=== PATIENT | male | born 1955 | race Caucasian/White ===

== ENCOUNTER → 2024-11-27 | Outpatient (CLI) | payer MEDICARE ==
[2024-11-27 13:16] LABS: INR 0.9 (<1.2); Partial Thromboplastin Time 23.7 sec (22.0-30.0); Prothrombin Time 10.4 sec (10.0-12.5)
[2024-11-27 16:29] LABS: ALT 14 U/L (10-49); AST 25 U/L (14-35); Albumin 3.9 g/dL (3.8-4.9); Albumin/Globulin Ratio 1.39 Ratio (1.60-3.17); Alkaline Phosphatase 59 U/L (41-126); BUN/Creat Ratio 23.55 Ratio (12.00-20.00); Blood Urea Nitrogen 25.9 mg/dL (9.0-27.0); Calcium 8.7 mg/dL (8.7-10.3); Carbon Dioxide 19.7 mmol/L (21.6-31.8); Chloride 106 mmol/L (96-109); Globulin 2.8 g/dL (1.6-3.3); Glucose 119 mg/dL (70-110); Potassium 4.7 mmol/L (3.5-5.5); Sodium 135 mmol/L (135-145); Total Bilirubin 0.3 mg/dL (0.3-1.2); Total Protein 6.7 g/dL (6.2-8.2)
[2024-11-27 16:31] LABS: HCT 47.5 % (39.6-50.0); HGB 16.3 g/dL (13.0-17.0); MCH 30.9 pg (27.0-32.0); MCHC 34.3 g/dL (32.0-37.0); MCV 90.1 FL (80.0-97.0); Mean Platelet Volume 11.1 FL (9.5-12.2); NRBC Per 100 WBC 0 X 10*3/uL (0.00-0.01); Platelet Count 209 X 10*3/uL (140-440); RBC 5.27 X 10*6/uL (4.40-5.60); RDW 11.8 % (11.5-14.5)
== END | disposition home or self-care (01) ==
LOC: LABPAT 11:49
PROVIDERS: ATTEND Orthopaedic Surgery
DX: Z01.818 Encounter for other preprocedural examination (principal); M16.11 Unilateral primary osteoarthritis, right hip; Z22.322 Carrier or suspected carrier of Methicillin resistant Staphylococcus aureus
CPT/HCPCS: 80053; 85027; 85610; 85730; 86850; 86900; 86901; 87070; 93005

== ENCOUNTER 2024-12-04 05:41 | Day surgery (SDC) | payer MEDICARE ==
[2024-11-29 10:56] VITALS: BMI 32.8
[~2024-12-04 05:41] MED LIST: TRANEXAMIC 1,000 MG/100ML-NACL 1,000 MG in SALINE 1 100ML.BAG IVPB PRN
[2024-12-04] MEDS ORDERED: HYDROmorphone 0.5 MG/0.5 ML SYRINGE IVP PRN ×3 (05:52→08:46)
[2024-12-04] MEDS: IV FLUID CONTINUATION 1,000 ML IV ONE (06:30)
[2024-12-04] MEDS: LIDOCAINE 1% (10MG/ML) FOR IV START INTRADERMA STA (06:30)
[2024-12-04] MEDS: LACTATED RINGERS 1,000 ML IV SCH (06:30)
[2024-12-04] MEDS: ACETAMINOPHEN TAB 500 MG TAB PO PRN (06:37)
[2024-12-04] MEDS: GABAPENTIN 300 MG CAP PO PRN (06:37)
[2024-12-04] MEDS: MELOXICAM 7.5 MG TAB PO PRN (06:37)
[2024-12-04] MEDS: DEXAMETHASONE SOD PHOSPHATE 4 MG/ML 1 ML VIAL IVP STA (06:38)
[2024-12-04] MEDS: ONDANSETRON 4 MG/2 ML VIAL IVP STA (06:38)
[2024-12-04] MEDS: MIDAZOLAM 2 MG/2 ML VIAL IV ONE (06:51)
[2024-12-04] MEDS: fentaNYL (PF) 50 MCG/ML 2 ML AMP IVP PRN (06:51)
[2024-12-04] MEDS ORDERED: TRANEXAMIC 1,000 MG/100ML-NACL PREMIX BAG ONE (06:58)
[2024-12-04] MEDS ORDERED: PROPOFOL 10 MG/ML 20 ML VIAL IV ONE (06:58)
[2024-12-04] MEDS ORDERED: ePHEDrine 50 MG/ML 1 ML VIAL ONE (06:58)
[2024-12-04] MEDS ORDERED: ROPIVACAINE 5 MG/ML 30 ML VIAL ONE (06:58)
[2024-12-04] MEDS ORDERED: DEXAMETHASONE SOD PHOSPHATE 4 MG/ML 1 ML VIAL ONE (06:58)
[2024-12-04] MEDS: ceFAZolin 2 GM in DEXTROSE 5% IN WATER 50 ML IVPB PRN (07:00)
[2024-12-04] MEDS: ceFAZolin 1,000 MG in SODIUM CHLORIDE 0.9% 1,000 ML IRRIGATION ONE (07:00)
[2024-12-04] MEDS: ROPIVACAINE 5 MG/ML 30 ML VIAL MISCELLANE ONE ×2 (07:36→08:12)
[2024-12-04] MEDS: LACTATED RINGERS 1,000 ML IV ONE (08:19)
--- NOTE | 2024-12-04 08:20 | P.OP ---
Date of Procedure: 12/04/24 Preoperative Diagnosis: Severe osteoarthritis right hip Postoperative Diagnosis: Severe osteoarthritis right hip Procedure(s) Performed: Right total hip arthroplasty with a direct anterior approach Implants: [employer]ee [employer] Nephew Polarstem standard size 3 with a collar [employer]ee [employer]hew R3, 3 hole hemispherical acetabular shell, 52 mm [employer]ee [employer]hew Reflection 6.5 mm cancellus screw, 20 mm 2 [employer]ee [employer]hew OR30, 40 mm ID, 52 mm OD, Oxinium dual mobility liner [employer]ee [employer] Nephew OR30, 22 mm ID, 40 mm OD, XLPE Dual mobility insert [employer]hew Oxinium femoral head 28 m, +0 All components were press-fit. The articulation is Oxinium on polyethylene. Anesthesia: spinal Surgeon: Kervin Callejas Champagne Maker #1: Brigitte Ro Estimated Blood Loss (ml): 500 Pathology: none sent Condition: stable Disposition: PACU Indications for Procedure: After failure of conservative treatment we discussed the surgical and nonsurgical treatment options at length. Patient wishes to proceed with a total hip arthroplasty with a direct anterior approach. Complications specific to this procedure were discussed at length, including but not limited to infection, leg length discrepancy, dislocation, nerve injury, and fracture. Covid-19 was also discussed at length with the patient, and they are aware of the current policies and procedures. The patient was given the option of delaying surgery, but they elect to proceed knowing these risks. Patient is aware of all these complications and informed consent was obtained Operative Findings: The operative findings are consistent with severe osteoarthritis of the right hip. Secondary to the patient's Parkinson's disease, a dual mobility hip insert was utilized to decrease the risk of a dislocation. Description of Procedure: The patient was seen and evaluated in the preoperative area and the consent was reviewed. The operative site was marked with a skin marker. The patient verified the procedure and operative site. A EMMIE block was placed by anesthesia in the preoperative area. The patient was then brought to the operating room and given preoperative antibiotics intravenously. 1 g of Tranexamic acid was also given intravenously. A spinal anesthetic was administered by the anesthesia department. The patient was then placed on the [place] table with the bony prominences well-padded. The hip area was then prepped with a ChloraPrep solution and draped in the usual sterile fashion. A universal timeout was then performed, which confirmed the patient's name, surgical site, ALLERGIES, and procedure being performed on the consent. Next the incision site was located at 1 cm distal and 4 cm lateral to the anterior superior iliac spine. The skin and subcutaneous tissues were sharply incised. Incision was carefully dissected down to the fascia overlying the tensor fascia leanne muscle. This fascia was then incised in line with the muscle fibers. Care was taken to stay laterally in order to avoid injuring the lateral femoral cutaneous nerve. Next, using blunt finger dissection, the tensor fascia leanne muscle was dissected off its investing fascia. The muscle was then carefully retracted laterally with a cobra retractor over the lateral neck of the femur. Next, the circumflex vessels were identified and cauterized using the Aquamantis device. The anterior hip capsule was then exposed. The capsule was then opened and an inverted T fashion. The retractors were then placed intracapsularly. The retractors were maintained intracapsular throughout the procedure. The proximal femur was then visualized. Fluoroscopic x-rays were then taken in order to evaluate the preoperative leg lengths. A small amount of traction was placed on the leg. The femoral neck was then osteotomized at the appropriate level above the lesser trochanter. A small wedge of bone was then removed from the remaining femoral head. Next, using a corkscrew the femoral head was removed from the acetabulum. On gross visual inspection, the femoral head had complete loss of articular cartilage and multiple periarticular osteophytes. The femoral head was then measured. Attention was then turned to the acetabulum. The acetabulum was exposed and any remaining labrum was excised. Sequential reaming of the acetabulum was performed using fluoroscopic guidance until there was a good bed of bleeding cancellus bone. When the appropriate size was reached, a trial was then placed. The position and fit of the trial was checked with fluoroscopy. The trial was then removed. Then, using fluoroscopic guidance, the final implant was impacted at 20 of anteversion and 40 of abduction, and fully seated in the acetabulum. 2 screws were then placed in the acetabulum. Again fluoroscopy was used to check position of the screws. Next, the liner was then impacted, with a 20 elevated liner located in the anterior superior quadrant. Component locking was confirmed. Attention was then directed to the femur. With the aid of the [place] table, the femur was externally rotated to approximately 130, extended, and adducted under the opposite leg. A side hook was then placed under the proximal femur, and the side hook elevator was used to elevate the proximal femur while releasing the capsule. Retractors were then placed. A capsular release was performed, as well as a release of the conjoined tendon, which afforded excellent v isualization of the proximal femur. Next, a box osteotome was used to lateralize the proximal femur. A dipper clock and watch hands was then used to locate the femoral canal. Sequential broaching was then performed with appropriate size which afforded excellent fixation in the proximal femur. A trial was then placed with appropriate head and neck, and the hip was gently reduced with the aid of the [place] table. Fluoroscopy was then used to check position of the components, as well as to evaluate the leg lengths and offset. The leg lengths and offset were measured as closely as possible to ensure stability of the hip. The hip was then gently dislocated and the trials were then removed. Final implants were then impacted and the hip was again reduced. Final fluoroscopic x-rays confirmed that the components were in anatomic position. The leg lengths and offset were measured and were found to coincide with the trial measurements. The hip was also taken through range of motion, and found to be stable. The hip was then copiously irrigated with antibiotic solution with pulsatile lavage. The hip was then irrigated with Irrisept solution. The soft tissues were then injected with a ropivacaine solution. A second dose of 1 g of Tranexamic acid was also given intravenously. The fascia was then closed with 2-0 strata fix suture. The subcutaneous tissue was closed with 3-0 Vicryl. The subcuticular tissue was closed with 3-0 strata fix suture. The skin was then closed with Exofin skin glue. After the glue and dried, and Optifoam silver impregnated dressing was applied. The patient was t hen transferred to the recovery room in stable condition. The circulation assistant ALONZO Rousseau was required due to the complexity of surgery, and the need for skilled sales assistant entertainment and media for positioning, draping, exposure, retraction, and closure of the wound.
--- NOTE | 2024-12-04 08:31 | FL ---
EXAMINATION TYPE: FL guidance operating room, XR Hip Limited RT DATE OF EXAM: 12/04/2024 FLUOROSCOPY rt. Anterior hip replacement fl time: 43 sec DAP: 2.5833 [place] 3 images are submitted and show gross anatomic alignment without evidence complication on these intra operative views. [facility], , 12/04/2024 8:29 AM
[2024-12-04] MEDS ORDERED: MAGNESIUM HYDROXIDE 2,400 MG/30 ML CUP PO PRN (08:46)
[2024-12-04] MEDS ORDERED: NALOXONE 0.4 MG/ML 1 ML VIAL IV PRN (08:46)
[2024-12-04] MEDS ORDERED: ONDANSETRON 4 MG/2 ML VIAL IVP PRN (08:46)
[2024-12-04] MEDS ORDERED: HYDROcodone/APAP 7.5-325MG 1 EACH TAB PO PRN (08:48)
--- NOTE | 2024-12-04 09:14 | XR ---
EXAMINATION TYPE: XR Hip Limited RT DATE OF EXAM: 12/04/2024 9:04 AM COMPARISON: None CLINICAL INDICATION: Male, 69 years old with history of Status post hip surgery, assess surgical gemini almeida; PHH, pain FINDINGS: Image shows placement of right total hip arthroplasty. Both acetabular cup and femoral stem component s of the prosthesis are well seated without periprosthetic fracture. Alignment grossly anatomic. Soft tissue air related to recent operation. IMPRESSION: Uncomplicated postoperative appearance right total hip arthroplasty. [facility], Workstation: [facility], 12/04/2024 9:12 AM
[2024-12-04] MEDS: CARBIDOPA-LEVODOPA 25-100 MG 1 EACH TAB PO SCH (13:09)
--- NOTE | 2024-12-04 13:22 | P.ANPRN ---
Procedure Note - Anesthesia - Nerve Block Performed Right Ian Single Time Out Performed: Yes ([id number]) Date of Procedure: 12/04/24 Procedure Start Time: 06:52 Procedure Stop Time: 06:57 Location of Patient: PreOp Indication: Acute Post-Operative Pain, Requested by Surgeon Specifically requested for management of pain by DrAislinn: Kervin Callejas Sedation Type: Sedate with meaningful contact maintained Preparation: Sterile Prep Position: Supine Catheter: None Needle Types: Pajunk Needle Gauge: 21 Ultrasound used to visualize needle placement: Yes Ultrasound used to observe medication spread: Yes Injectate: 0.5% Ropivacaine (see comment for volume) (30CC+DECADRON 4MG) Blood Aspirated: No Pain Paresthesia on Injection Noted: No Resistance on Injection: Normal Image Stored and Saved: Yes Events: Uneventful and Well Tolerated
[2024-12-04] MEDS: SODIUM CHLORIDE 0.9% 1,000 ML IV SCH (14:26)
[2024-12-04] MEDS: ENTACAPONE 200 MG TAB PO SCH (19:53)
[2024-12-04] MEDS: ASPIRIN 325 MG TAB PO SCH (20:33)
[2024-12-04] MEDS: SENNOSIDES-DOCUSATE SODIUM 1 EACH TAB PO SCH (20:33)
[2024-12-04] MEDS: PRAMIPEXOLE 1 MG TAB PO SCH (22:15)
[2024-12-04] MEDS: HYDROcodone/APAP 7.5-325MG 1 EACH TAB PO PRN (22:21)
[2024-12-05 07:53] VITALS: BP 160/96; PULSE 74; RESP 18; TEMP 97.6
[2024-12-05 08:11] LABS: HCT 39.9 % (39.6-50.0); HGB 13.5 g/dL (13.0-17.0); MCH 30.4 pg (27.0-32.0); MCHC 33.8 g/dL (32.0-37.0); MCV 89.9 FL (80.0-97.0); Mean Platelet Volume 10.8 FL (9.5-12.2); NRBC Per 100 WBC 0 X 10*3/uL (0.00-0.01); Platelet Count 195 X 10*3/uL (140-440); RBC 4.44 X 10*6/uL (4.40-5.60); WBC 12.78 X 10*3/uL (4.50-10.00)
[2024-12-05] MEDS: LORATADINE 10 MG TAB PO SCH (08:13)
[2024-12-05] MEDS: ASCORBIC ACID 500 MG TAB PO SCH (08:13)
[2024-12-05] MEDS: RASAGILINE MESYLATE 0.5 MG PO SCH (08:16)
[2024-12-05] MEDS: HYDROmorphone 0.5 MG/0.5 ML SYRINGE IVP PRN (08:24)
[2024-12-05 08:46] LABS: Basophils # (A) 0.03 X 10*3/uL (0.00-0.10); Basophils % (A) 0.2 %; Eosinophils # (A) 0.02 X 10*3/uL (0.04-0.35); Eosinophils % (A) 0.2 %; Lymphocytes # (A) 1.96 X 10*3/uL (0.90-5.00); Lymphocytes % (A) 15.3 %; Monocytes # (A) 1.53 X 10*3/uL (0.20-1.00); Neutrophils # (A) 9.18 X 10*3/uL (1.80-7.70); Neutrophils % (A) 71.8 %
[2024-12-05] MEDS ORDERED: NON FORMULARY DRUG (Cetirizine Hcl [Zyrtec] 10 MG Tablet) PO SCH (09:00)
--- NOTE | 2024-12-05 09:18 | P.DS ---
Providers Expected date of discharge: 12/05/24 Attending physician: Kervin Callejas Consults: 12/04/24 08:46 Consult Physician Routine Consulting Provider: Sotero Ludwig Consult Reason/Comments: medical management Do you want consulting provider notified?: Yes Primary care physician: Eliezer Salazar - Discharge Diagnosis(es) (1) Osteoarthritis of right hip Current Visit: Yes Status: Acute (2) S/P total hip arthroplasty Current Visit: Yes Status: Acute Hospital Course: This is a 69-year-old male with known history of degenerative arthritis of the right hip. The patient presented for evaluation as an outpatient. After discussion and consideration patient elects to proceed with total hip arthroplasty. The patient is seen preoperatively by Dr. Callejas and medically cleared for surgery by their primary care physician. Patient is admitted to [facility] on 12/04/2024 for total hip arthroplasty. The procedure is performed without complication or sequelae. The patient is doing well postoperatively. Labs and vital signs are stable on day of discharge. On day of discharge patient's hip incision is healing well. There is minimal erythema. There is no drainage noted at this time. There is minimal soft tissue swelling to the hip and thigh. Patient has full foot and ankle motion without difficulty or pain. Calf is soft and nontender to palpation. Neurovascular status to the right lower extremity is intact. Patient is discharged home in good condition. Please see med rec for accurate list of home medications. Plan - Discharge Summary Discharge Rx Participant: No New Discharge Prescriptions: New Aspirin 325 mg PO BID #60 tab HYDROcodone/APAP 7.5-325MG [Premium 7.5-325] 1 - 2 tab PO Q6H PRN #32 tab PRN Reason: Pain Sennosides [Senokot] 2 tab PO DAILY PRN #60 tablet PRN Reason: Constipation No Action Rasagiline Mesylate 1.5 mg PO Q2D Rasagiline Mesylate 0.5 mg PO DAILY Pramipexole [Mirapex] 1 mg PO QID Loratadine 10 mg PO DAILY Betamethasone Dipropionate [Betamethasone Dipropionate 0.05% Cream] 1 applic TOPICAL BID PRN PRN Reason: Skin Irritation [place]-3/Dha/Epa/Fish Oil [[place]-3 Fish Oil 1,000 mg Sfgl] 1 each PO DAILY Cholecalciferol (Vitamin D3) [Vitamin D3 (50 Mcg = 2000 Iu)] 100 mcg PO DAILY polyethylene glycoL 3350 [Miralax] 1 dose PO DAILY Colostrum, Bovine [Colostrum Prime Life] 4 tablet PO DAILY Aspirin [Adult Low Dose Aspirin EC] 81 mg PO DAILY Vibegron [Gemtesa] 75 mg PO HS Rasagiline Mesylate 1 mg PO Q2D Entacapone [Comtan] 200 mg PO QID Cetirizine HCl [Zyrtec] 10 mg PO DAILY Carbidopa-Levodopa 25-100 mg [Sinemet 25-100] 2 tablet PO QID Ascorbic Acid [Vitamin C] 500 mg PO DAILY Magnesium 800 mg PO DAILY Psyllium Husk [Metamucil] 1 dose PO DAILY Green Tea Colburn Extract [Green Tea Extract] 200 mg PO DAILY Acetaminophen Tab [Tylenol Tab] 500 mg PO Q6H Ibuprofen 600 mg PO TID Discharge Medication List Acetaminophen Tab [Tylenol Tab] 500 mg PO Q6H 11/29/24 [History] Ascorbic Acid [Vitamin C] 500 mg PO DAILY 11/29/24 [History] Aspirin [Adult Low Dose Aspirin EC] 81 mg PO DAILY 11/29/24 [History] Betamethasone Dipropionate [Betamethasone Dipropionate 0.05% Cream] 1 applic TOPICAL BID PRN 11/29/24 [History] Carbidopa-Levodopa 25-100 mg [Sinemet 25-100] 2 tablet PO QID 11/29/24 [History] Cetirizine HCl [Zyrtec] 10 mg PO DAILY 11/29/24 [History] Cholecalciferol (Vitamin D3) [Vitamin D3 (50 Mcg = 2000 Iu)] 100 mcg PO DAILY 11/29/24 [History] Colostrum, Bovine [Colostrum Prime Life] 4 tablet PO DAILY 11/29/24 [History] Entacapone [Comtan] 200 mg PO QID 11/29/24 [History] Green Tea Colburn Extract [Green Tea Extract] 200 mg PO DAILY 11/29/24 [History] Ibuprofen 600 mg PO TID 11/29/24 [History] Loratadine 10 mg PO DAILY 11/29/24 [History] Magnesium 800 mg PO DAILY 11/29/24 [History] [place]-3/Dha/Epa/Fish Oil [[place]-3 Fish Oil 1,000 mg Sfgl] 1 each PO DAILY 0 6/18/25 [History] Pramipexole [Mirapex] 1 mg PO QID 11/29/24 [History] Psyllium Husk [Metamucil] 1 dose PO DAILY 11/29/24 [History] Rasagiline Mesylate 0.5 mg PO DAILY 11/29/24 [History] Rasagiline Mesylate 1 mg PO Q2D 11/29/24 [History] Rasagiline Mesylate 1.5 mg PO Q2D 11/29/24 [History] Vibegron [Gemtesa] 75 mg PO HS 11/29/24 [History] polyethylene glycoL 3350 [Miralax] 1 dose PO DAILY 11/29/24 [History] Aspirin 325 mg PO BID #60 tab 12/04/24 [Rx] HYDROcodone/APAP 7.5-325MG [Premium 7.5-325] 1 - 2 tab PO Q6H PRN #32 tab 12/04/24 [Rx] Sennosides [Senokot] 2 tab PO DAILY PRN #60 tablet 12/04/24 [Rx] Follow up Appointment(s)/Referral(s): Kervin Callejas DO [Doctor of Osteopathic Medicine] - 2 Weeks Activity/Diet/Wound Care/Special Instructions: Weightbearing as tolerated with walker. Leave dressing intact. Dressing may be removed by home care nurse or by patient in 7 days. Then change dressing twice daily until follow up. May shower with initial dressing intact and after removal. If dressing become saturated, please remove. Please take aspirin 325mg twice daily for 30 days to prevent blood clots. Recommend use of compression stockings daily until follow up to help prevent swelling and blood clots. May remove at night before sleeping. Please follow[facility]up with [facility] weeks and call with any questions or concerns, . Discharge Disposition: HOME WITH HOME HEALTH SERVICES
== END 2024-12-05 13:07 | disposition home health service (06) ==
LOC: OR 05:41 → 4SSUR 08:34 → OR 12-05 13:07
PROVIDERS: ATTEND Orthopaedic Surgery
DX: M16.11 Unilateral primary osteoarthritis, right hip (principal); E78.5 Hyperlipidemia, unspecified; G47.33 Obstructive sleep apnea (adult) (pediatric); G20.A1 Parkinson's disease without dyskinesia, without mention of fluctuations; Z88.8 Allergy status to other drugs, medicaments and biological substances; Z79.82 Long term (current) use of aspirin; Z79.899 Other long term (current) drug therapy
CPT/HCPCS: 27130; 97161; 97166; 64473; 85025; 73501; C1776; J2250; J1100; J0690 ×2; J2405; J3010; J2795; J2704; J1171